=== PATIENT | female | born 1965 | race Two or more races ===

== ENCOUNTER 2024-12-10 17:08 | Emergency (ER) | payer MEDICAID, SELFPAY ==
--- NOTE | 2024-12-10 17:18 | EKG_ITS ---
[facility] Test Date: 2024-12-10 Pat Name: TRACEY ORTIZ Department: Room: - Gender: Female [employer] Architect: : [id number] Requested By: Yoseph Strong (DG) Order Number: [id number] Reading MD: Yoseph Strong ([employer]) Measurements Intervals [place] Rate: 83 P: 48 SC: 147 QRS: -6 QRSD: 101 T: -22 QT: 367 QTc: 431 Interpretive Statements SINUS RHYTHM MODERATE VOLTAGE CRITERIA FOR LVH, CONSIDER NORMAL VARIANT [MEETS CRITERIA IN ONE OF: R(aVL), S(V1), R(V5), R(V5/V6)+S(V1)] POSSIBLE SEPTAL MYOCARDIAL INFARCTION , OF INDETERMINATE AGE [30 ms Q WAVE IN V1/V2] Compared to ECG 10/01/2023 13:10:22 Myocardial infarct finding now present ST (T wave) deviation no longer present /store/S0/[id number].pdf
--- NOTE | 2024-12-10 17:19 | XR_ITS ---
Examination: CT brain head without contrast. 2-D sagittal coronal reconstructions Date and time of exam:December 10, 2024 1736 hrs. Indications: Headache dizziness weakness beginning 5 days ago CTDI: vol (mGy):51.1 DLP: (mGycm):949 Technique: Multiple CT axial sections of the brain have been obtained, 5 mm slice thickness. Contrast has not been administered. 2-D sagittal, coronal reconstructions have been obtained Low dose protocols were performed. One or more of the following dose reduction techniques were used; automated exposure control, adjustment of the mA and/or KV according to patient size, use of iterative reconstruction technique. Findings: No significant ventricular enlargement. Intra-axial or extra-axial hemorrhage density is not seen. No mass effect or midline shift Basal cisterns are not remarkable. Fourth ventricle is midline. Cranial vault intact. Impression: Negative for acute hemorrhage, mass effect or midline shift Advise clinical correlation follow-up accordingly
[2024-12-10 17:21] VITALS: BP 102/73; PULSE 79; RESP 18; TEMP 37.1; O2SAT 97
--- NOTE | 2024-12-10 17:21 | PD.EDRME ---
Rapid Medical Screening Exam RME Arrival date/time: 12/10/24 17:08 58-year-old female presents emergency department today complaints of dizziness and fatigue x 5 days Chief Complaint: Dizziness Time Seen by Provider: 12/10/24 17:18
[2024-12-10 17:46] LABS: Collection Type, Urine Clean Catch
[2024-12-10 18:00] LABS: Amphetamine/Methamp Scrn,U Negative (Negative); Barbiturate Screen,Urine Negative (Negative); Benzodiazepines Screen,Urine Negative (Negative); Benzoylecgonine Screen, Ur Negative (Negative); Fentanyl Screen,Urine Negative (Negative); Opiate Screen,Urine Negative (Negative); THC Screen,Urine Negative (Negative)
[2024-12-10 18:02] LABS: Basophils % (Auto) 1 % (0-2.5); Eosinophils # (Auto) 0.1 Thou/mm3 (0.0-0.5); Eosinophils % (Auto) 1 % (0-10); Hematocrit 40.1 % (36.0-46.0); Hemoglobin 13.6 g/dL (12.0-16.0); Immature Granulocytes % (Auto) 0 % (0-0); Immature Granulocytes Auto 0.02 Thou/mm3 (0.00-0.00); Lymphocytes # (Auto) 2.2 Thou/mm3 (1.0-4.8); Lymphocytes % (Auto) 31 % (10-50); Mean Corpuscular HGB Conc 33.9 g/dl (31.0-37.0); Mean Corpuscular Hemoglobin 31.1 pg (25.0-35.0); Mean Corpuscular Volume 92 fL (80-100); Monocytes # (Auto) 0.6 Thou/mm3 (0.0-0.8); Monocytes % (Auto) 8 % (0-12); Neutrophils # (Auto) 4.4 Thou/mm3 (1.8-7.7); Neutrophils % (Auto) 60 % (37-80); Nucleated Red Blood Cell % 0 /100 WBC (0); Platelet Count 287 Thou/mm3 (140-440); RDW Standard Deviation 43.5 fL (36.4-46.3); Red Blood Count 4.37 Miln/mm3 (4.00-5.20); White Blood Count 7.3 Thou/mm3 (3.6-11.0)
[2024-12-10 18:04] LABS: Bacteria,Urine 1+; Bilirubin,Urine Negative (Negative); Blood,Urine Negative (Negative); Clarity,Urine Clear (Clear/Hazy); Color,Urine Colorless (Lt Yel-Yel); Glucose, Urine Negative (Negative); Ketones,Urine Negative (Negative); Leukocyte Esterase,Urine Negative (Negative); Nitrite,Urine Negative (Negative); Protein,Urine Negative (Neg - Trace); RBC,Urine 1 /hpf (0-3); Specific Gravity,Urine 1.007 (1.001-1.035); Squamous Epithelial Cell,Urine < 1 /hpf (0-5); Urobilinogen,Urine Negative mg/dL (0.0-1.0); WBC,Urine 2 /hpf (0-5)
[2024-12-10 18:06] LABS: Sperm,Urine Present
[2024-12-10 18:17] LABS: Partial Thromboplastin Time 28.1 Seconds (22.0-36.0); Prothrombin Time 10.9 Seconds (9.0-12.2)
[2024-12-10 18:19] LABS: B-Type Natriuretic Peptide 31 pg/mL (0-100)
[2024-12-10 18:34] LABS: Alanine Aminotransferase 11 U/L (10-49); Albumin, Serum 4.9 gm/dL (3.5-5.0); Albumin/Globulin Ratio 1.5 (1.2-2.2); Alkaline Phosphatase 110 U/L (46-116); Anion Gap 7 (7-16); Aspartate Amino Transferase 27 U/L (0-34); BUN/Creatinine Ratio 13 Ratio (12-20); Bilirubin,Total 0.6 mg/dL (0.3-1.2); Blood Urea Nitrogen 18 mg/dL (9-23); Calcium 9.2 mg/dL (8.3-10.6); Calcium (Corrected) 9.2 mg/dL (8.5-10.1); Carbon Dioxide 29.8 mMol/L (20.0-31.0); Chloride 102 mMol/L (98-107); Creatinine (Component) 1.4 mg/dL (0.6-1.3); Free T4 (Free Thyroxine) 1.06 ng/dL (0.89-1.76); Globulin 3.2 gm/dL (2.3-3.5); Glucose 89 mg/dL (74-106); Magnesium 2.2 mg/dL (1.6-2.6); Osmolality,Calculated 278 (275-295); Potassium 4.2 mMol/L (3.4-5.1); Sodium 139 mMol/L (136-145); Thyroid Stimulating Hormone 3.64 uIU/mL (0.55-4.78); Total Protein 8.1 gm/dL (5.7-8.2); Troponin I < 0.020 ng/mL (0.0-0.045); eGFR 44 See Note
--- NOTE | 2024-12-10 19:49 | PD.EDDIZZY ---
ED Dizzyness RME/HPI General Chief Complaint: Dizziness Stated Complaint: DIZZY X5 DAYS Time Seen by Provider: 12/10/24 17:18 Arrival date/time: 12/10/24 17:08 RME / HPI RME / HPI Narrative: 58-year-old female patient came in for evaluation regarding dizziness. Onset of symptoms for the last 5 days as on and off dizziness with vertigo, described as everything spinning and generalized body weakness. Denies any headache denies any slurring of speech denies any weakness to upper or lower extremity. Patient denies any fever. Denies any neck pain. Denies any head trauma or injury or fall lately. No medication was taken prior to arrival. Related Data Home Medications ?Medication ?Instructions ?Recorded ?Confirmed lisinopril 20 mg tablet 20 mg PO QDAY #0 tabs 05/16/17 08/22/21 atorvastatin 20 mg tablet 20 mg PO QPM 08/22/21 08/22/21 carvedilol 12.5 mg tablet 12.5 mg PO BID 08/22/21 08/22/21 diphenhydramine HCl 25 mg capsule 25 - 50 mg PO HS PRN Sleep 08/22/21 08/22/21 (Diphenhist) ergocalciferol (vitamin D2) 1,250 50,000 unit PO QWEEK 08/22/21 08/22/21 mcg (50,000 unit) capsule (Vitamin D2) gabapentin 300 mg capsule 300 mg PO HS 08/22/21 08/22/21 meclizine 25 mg chewable tablet 25 mg PO Q8H PRN Dizziness 08/22/21 08/22/21 Previous Rx's ?Medication ?Instructions ?Recorded furosemide 40 mg tablet 40 mg PO QAM #14 tabs 12/14/19 albuterol sulfate 90 mcg/actuation 2 puff inhalation QID PRN 08/15/21 aerosol inhaler shortness of breath or wheezing #8.5 grams etodolac 400 mg tablet 400 mg PO BID PRN pain #30 tabs 06/15/22 tramadol 37.5 mg-acetaminophen 325 1 tab PO TID PRN pain #15 tabs 06/15/22 mg tablet (Ultracet) cefuroxime axetil 500 mg tablet 500 mg PO BID #14 tabs 10/01/23 scopolamine base 1 mg over 3 days 1 mg topical .Q3 days #10 ea 10/01/23 transdermal patch (Transderm-Scop) hydrocodone 5 mg-acetaminophen 325 1 tab PO BID PRN pain #6 tabs 01/09/24 mg tablet ibuprofen 600 mg tablet 600 mg PO Q6H #30 tabs 01/09/24 ibuprofen 600 mg tablet 600 mg PO TID PRN pain #30 tabs 01/11/24 ibuprofen 800 mg tablet 800 mg PO TID PRN pain #30 tabs 02/21/24 meclizine 50 mg tablet 50 mg PO BID PRN dizziness #30 tabs 12/10/24 Allergies Allergy/AdvReac Type Severity Reaction Status Date / Time No Known Allergies Allergy Verified 12/10/24 17:10 Review of Systems Review of Systems Narrative Review of Systems: Review of system reviewed and within normal limits except mentioned in HPI ED Exam Narrative Physical exam: VITAL SIGNS: Reviewed. GENERAL APPEARANCE: Alert and interactive, follows commands, no acute distress, HEAD AND FACE: Non-traumatic. ENT: PERRL, pink conjunctivitis, eyelid no trauma, Mucous membrane moist. NECK: Supple, nontender, no nuchal rigidity. CHEST: No tenderness, no crepitus, no paradoxical movement, no retractions. LUNGS: Clear, well ventilated, symmetric, no rales, no wheezing, no ronchi, no stridor, good breath sounds bilaterally. HEART: Regular rate, regular rhythm, no murmur, no gallops. ABDOMEN: Soft, positive bowel sounds, nondistended, no guarding, nontender, no rebound, no masses, RECTAL: Deferred. GENITAL: Deferred. NEUROLOGICAL: Gross motor function intact sensory function intact, Appropriate for age. MUSCULOSKELETAL: low back nontender, full range of motion. EXTREMITIES: Nontender, full range of motion. SKIN: Color pink, dry, no rash, no lacerations, no abrasions, no contusions. LYMPHATICS: Deferred. Course Quality Measures none Orders Category Date Time Status EKG (ED ONLY) *Do not use* NOW Care 12/10/24 17:[address] head/brain wo con Stat Exams 12/10/24 17:19 Completed EKG (ED Only) Stat Exams 12/10/24 17:18 Draft B-Type Natriuretic Peptide Stat Lab 12/10/24 17:53 Completed CBC Stat Lab 12/10/24 17:53 Completed Comprehensive Metabolic Panel Stat Lab 12/10/24 17:53 Completed Drug Screen,Urine Stat Lab 12/10/24 17:34 Completed Free T4 (Free Thyroxine) Stat Lab 12/10/24 17:53 Completed Magnesium Stat Lab 12/10/24 17:53 Completed Partial Thromboplastin Time Stat Lab 12/10/24 17:53 Completed Prothrombin Time with INR Stat Lab 12/10/24 17:53 Completed TSH [Thyroid Stimulating Hormone] Stat Lab 12/10/24 17:53 Completed Troponin I Stat Lab 12/10/24 17:53 Completed Urinalysis Stat Lab 12/10/24 17:33 Completed Meclizine HCl [Antivert] Med 12/10/24 19:46 Discontinued 50 mg PO X1 ONE Vital Signs Vital signs: Vital Signs Temperature 98.8 F 12/10/24 17:21 Pulse Rate 79 12/10/24 17:21 Respiratory Rate 18 12/10/24 17:21 Blood Pressure 102/73 12/10/24 17:21 Pulse Oximetry (%) 97 12/10/24 17:21 Oxygen Delivery Method Room Air 12/10/24 17:21 Dizziness MDM Narrative MDM Narrative:: 58-year-old female patient came in for evaluation regarding dizziness. Onset of symptoms for the last 5 days as on and off dizziness with vertigo, described as everything spinning and generalized body weakness. Denies any headache denies any slurring of speech denies any weakness to upper or lower extremity. Patient denies any fever. Denies any neck pain. Denies any head trauma or injury or fall lately. No medication was taken prior to arrival. Clinically I did not notice any nystagmus. Patient is ambulatory. Patient's workup today including CT scan of the head all came back normal. EKG showed normal sinus rhythm, ventricular rate of 53 bpm, no ST segment elevation or depression noted. Results discussed with the patient. Patient was given meclizine with significant progress symptoms Patient appears nontoxic and hemodynamically stable. Patient discharged home and instructed to follow-up with primary care provider in 24 to 48 hours. Instructed to return to the emergency department immediately if worsening of symptoms Patient data External records reviewed:: None Clinical information provided by:: patient Social determinants that could affect healthcare access:: none Patient has the following chronic illnesses:: History of congestive heart failure How is presenting disease/condition affected by chronic disease/condition?: uneffected by Evaluation data The following diagnostics were reviewed and interpreted by me:: lab results, radiology exam(s) and EKG tracing(s) Lab and/or radiology exams considered but not ordered:: None Interpretation Summary: See results in [facility] Medications / Prescriptions Medications or Prescriptions considered but not ordered:: None Medication administrations:: Medication Administration History Discontinued Medications Meclizine HCl (Meclizine Hcl 25 Mg Tablet) 50 mg PO X1 ONE Stop: 12/10/24 19:47 Meclizine Consultations Consultation(s) initiated? (list below): No Diagnosis Dizziness Differential Diagnosis: adverse reaction to drug, benign paroxysmal positional vertigo and cerebrovascular accident Most likely diagnosis given after review of the tests above:: Dizziness, vertigo Admission Indicated Admission indicated?: not indicated Admission Request Was there a request for admission?: No Disposition Plan Disposition Plan: Discharge Discharge Attestation Discharge Attestation: The patient was given an opportunity to ask questions and understood the discharge instructions. Discharge instructions specifically effects, indications for sooner follow up or return to the emergency department, and the expected course of current diagnosis. Patient condition: Stable Discharge Plan Plan Patient Disposition: HOME (Self Care) Disposition Comment: Stable Prescriptions/Referrals Prescriptions/Med Rec: New meclizine 50 mg tablet 50 mg PO BID PRN (Reason: dizziness) Qty: 30 0RF No Action lisinopril 20 MG tablet 20 mg PO QDAY Qty: 0 albuterol sulfate 90 mcg/actuation HFA aerosol inhaler 2 puff inhalation QID PRN (Reason: shortness of breath or wheezing) Qty: 8.5 0RF furosemide 40 mg tablet 40 mg PO QAM Qty: 14 0RF atorvastatin 20 mg tablet 20 mg PO QPM carvedilol 12.5 mg tablet 12.5 mg PO BID diphenhydramine HCl [Diphenhist] 25 mg capsule 25 - 50 mg PO HS PRN (Reason: Sleep) gabapentin 300 mg capsule 300 mg PO HS ergocalciferol (vitamin D2) [Vitamin D2] 1,250 mcg (50,000 unit) capsule 50,000 unit PO QWEEK meclizine 25 mg tablet,chewable 25 mg PO Q8H PRN (Reason: Dizziness) scopolamine base [Transderm-Scop] 1 mg over 3 days patch 3 day 1 mg topical .Q3 days Qty: 10 0RF cefuroxime axetil 500 mg tablet 500 mg PO BID Qty: 14 0RF hydrocodone-acetaminophen 5-325 mg tablet 1 tab PO BID MDD 10 PRN (Reason: pain) Qty: 6 0RF ibuprofen 600 mg tablet 600 mg PO Q6H Qty: 30 0RF ibuprofen 600 mg tablet 600 mg PO TID PRN (Reason: pain) Qty: 30 0RF ibuprofen 800 mg tablet 800 mg PO TID PRN (Reason: pain) Qty: 30 0RF tramadol-acetaminophen [Ultracet] 37.5-325 mg tablet 1 tab PO TID PRN (Reason: pain) Qty: 15 0RF etodolac 400 mg tablet 400 mg PO BID PRN (Reason: pain) Qty: 30 0RF Referrals: No Primary/Family,Physician [Primary Care Provider] - In 1 week Problem List Clinical Impression: Dizziness Patient/Caregiver Discharge Instructions Discharge Activity: activity as tolerated Education Materials: ED Dizziness, Uncertain Cause Additional Instructions: Thank you for the opportunity for serving you today. You are stable for discharged . You are advised to: Follow-up with your PCP in 1 to 2 days Return to ED for worsening of symptoms Increase oral fluids Take medication as prescribed Print Language: Cambodian Stand Alone Forms: Ronda Award Info., Patient Portal Info Letter LEIGH ANN/MOIRA Supervising Physician LEIGH ANN/MOIRA Supervising Physician: MD Abbie
[2024-12-10] MEDS: MECLIZINE HCL 25 MG TABLET 50 MG PO (19:52)
== END 2024-12-10 19:54 | disposition home or self-care (01) ==
PROVIDERS: Nurse Practitioner Primary Care; Emergency Provider Emergency Medicine
DX: R42 Dizziness and giddiness (principal)
CPT/HCPCS: 36415; 70450; 80053; 80307; 81001; 83735; 83880; 84439; 84443; 84484; 85025; 85610; 85730; 93005; 99284; A9270

== ENCOUNTER 2025-05-28 07:07 | Emergency (ER) | payer MEDICAID, SELFPAY ==
[2025-05-28 07:08] VITALS: BMI 30.4
[2025-05-28 07:14] VITALS: BP 159/92; PULSE 69; RESP 17; TEMP 36.4; O2SAT 100; BMI 29.2
--- NOTE | 2025-05-28 07:32 | XR_ITS ---
Examination: Shoulder,right, 3 views Technique: Shoulder AP internal rotation, AP external rotation, Y view shoulder, 3 views Exam date and time :May 28, 2025, 0734 hrs. Indications: Right shoulder pain one week no trauma Findings: No fracture or dislocation. No arthritic change. No soft tissue calcific tendinitis Impression: No fracture. No soft tissue calcific tendinitis
--- NOTE | 2025-05-28 07:36 | PD.EDUPEX ---
Upper Extremity Injury RME/HPI General Chief Complaint: Extremity Injury, Upper Stated Complaint: R SHOULDER PAIN X1 WEEK Time Seen by Provider: 05/28/25 07:13 Arrival date/time: 05/28/25 07:07 This is a 59-year-old female that comes into the emergency room with complaints of right shoulder pain. Patient denies trauma. Patient states the pain has been going on for the past week. Patient was seen by primary provider and an x-ray was ordered. Patient still has not had x-ray with primary provider and would like to have 1 done here today. Patient has more pain with range of motion but no pain to palpation. There is no deformity noted. Related Data Home Medications ?Medication ?Instructions ?Recorded ?Confirmed lisinopril 20 mg tablet 20 mg PO QDAY #0 tabs 05/16/17 08/22/21 atorvastatin 20 mg tablet 20 mg PO QPM 08/22/21 08/22/21 carvedilol 12.5 mg tablet 12.5 mg PO BID 08/22/21 08/22/21 diphenhydramine HCl 25 mg capsule 25 - 50 mg PO HS PRN Sleep 08/22/21 08/22/21 (Diphenhist) ergocalciferol (vitamin D2) 1,250 50,000 unit PO QWEEK 08/22/21 08/22/21 mcg (50,000 unit) capsule (Vitamin D2) gabapentin 300 mg capsule 300 mg PO HS 08/22/21 08/22/21 meclizine 25 mg chewable tablet 25 mg PO Q8H PRN Dizziness 08/22/21 08/22/21 Previous Rx's ?Medication ?Instructions ?Recorded furosemide 40 mg tablet 40 mg PO QAM #14 tabs 12/14/19 albuterol sulfate 90 mcg/actuation 2 puff inhalation QID PRN 08/15/21 aerosol inhaler shortness of breath or wheezing #8.5 grams etodolac 400 mg tablet 400 mg PO BID PRN pain #30 tabs 06/15/22 tramadol 37.5 mg-acetaminophen 325 1 tab PO TID PRN pain #15 tabs 06/15/22 mg tablet (Ultracet) cefuroxime axetil 500 mg tablet 500 mg PO BID #14 tabs 10/01/23 scopolamine base 1 mg over 3 days 1 mg topical .Q3 days #10 ea 10/01/23 transdermal patch (Transderm-Scop) hydrocodone 5 mg-acetaminophen 325 1 tab PO BID PRN pain #6 tabs 01/09/24 mg tablet ibuprofen 600 mg tablet 600 mg PO Q6H #30 tabs 01/09/24 ibuprofen 600 mg tablet 600 mg PO TID PRN pain #30 tabs 01/11/24 ibuprofen 800 mg tablet 800 mg PO TID PRN pain #30 tabs 02/21/24 meclizine 50 mg tablet 50 mg PO BID PRN dizziness #30 tabs 12/10/24 acetaminophen 500 mg tablet 1,000 mg (2 x 500 mg) PO Q6H #30 05/28/25 (Tylenol Extra Strength) tabs cyclobenzaprine 10 mg tablet 10 mg PO TID PRN muscle spasm #20 05/28/25 tabs Allergies Allergy/AdvReac Type Severity Reaction Status Date / Time No Known Allergies Allergy Verified 05/28/25 07:11 Review of Systems Review of Systems Systems Reviewed: All systems reviewed, normal except as documented Past Medical History Past Medical History NEUROLOGIC: Negative Neurological Disorders CARDIAC: Positive Hypercholesterolemia, Congestive Heart Failure, Edema and Hypertension; Negative Cardiac Disorders RESPIRATORY: Positive Asthma; Negative Chronic Obstructive Pulmonary Disease (COPD) GASTROINTESTINAL: Negative Gastrointestinal Disorders GENITOURINARY: Negative Genitourinary Disorders or Renal Disease REPRODUCTIVE: Negative Pelvic Inflammatory Disease MUSCULOSKELETAL: Positive Arthritis; Negative Musculoskeletal Disorders ENDOCRINE: Negative Endocrine Disorders, Diabetes Mellitus Type 1 or Diabetes Mellitus Type 2 HEMATOLOGIC: Negative Blood Disorders or Sickle Cell Disease OTHER HISTORY: Negative Autoimmune Disease, Blood Transfusions, Anesthesia Reactions, MRSA, VRSA, Vancomycin-Resistant Enterococci, Rubella (Sami Measles), Clostridium Difficile or Cancer Family History FAMILY HISTORY: Positive Family Cardiac Disorders; Negative Family Neurologic Problems Surgical History SURGICAL: Positive Pacemaker, Abdominal Surgery, Hysterectomy and Tubal Ligation; Negative Cardiac Surgery, Endocrine Surgery, Ear Surgery, Joint Replacement or Neurologic Surgery Social History SMOKING STATUS: Never smoker SECOND HAND EXPOSURE: No SUBSTANCE USE: does not use ED Exam Narrative Physical exam: VITAL SIGNS: Reviewed. GENERAL APPEARANCE: Alert and interactive, follows commands, no acute distress HEAD AND FACE: Non-traumatic. ENT: PERRL, conjuctiva pink and clear, eyelid no trauma, Mucous membrane moist. NECK: Supple, nontender, no nuchal rigidity. CHEST: No tenderness, no crepitus, no paradoxical movement, no retractions. LUNGS: breathing even and unlabored HEART: Regular rate, cap refill less than 2 seconds ABDOMEN: Soft, nondistended, no guarding, nontender, no rebound, no masses, NEUROLOGICAL: Gross motor function intact sensory function intact, Appropriate for age. MUSCULOSKELETAL: low back nontender, full range of motion. EXTREMITIES: No redness no swelling no skin breakdown on bilateral foot and leg. Distal neurovascular status intact bilateral foot. Pain with range of motion of shoulder mostly when lifting overhead she is able to do this though. Patient also has pain with shoulder abduction SKIN: Color pink, dry. Course Quality Measures none Orders Category Date Time Status XR shoulder RT min 2V Stat Exams 05/28/25 07:32 Completed Acetaminophen Tab [Tylenol ES Tab] Med 05/28/25 07:34 Discontinued 1,000 mg PO X1 ONE CYCLObenzaPRINE [Flexeril] Med 05/28/25 07:34 Discontinued 10 mg PO X1 ONE HYDROcodone*/APAP 5/325 [Kennard 5/325] Med 05/28/25 09:54 Discontinued 1 tab PO X1 ONE Ibuprofen Tab [Motrin Tab] Med 05/28/25 07:34 Discontinued 800 mg PO X1 ONE Ondansetron Odt [Zofran Odt] Med 05/28/25 09:54 Discontinued 4 mg PO X1 ONE Vital Signs Vital signs: Vital Signs Temperature 97.6 F 05/28/25 07:14 Pulse Rate 69 05/28/25 07:14 Respiratory Rate 17 05/28/25 07:14 Blood Pressure 159/92 H 05/28/25 07:14 Pulse Oximetry (%) 100 05/28/25 07:14 Oxygen Delivery Method Room Air 05/28/25 07:14 Extremity Injury MDM Narrative [facility] Narrative:: shoulder x ray: Findings: No fracture or dislocation. No arthritic change. No soft tissue calcific tendinitis Impression: No fracture. No soft tissue calcific tendinitis I spoke to patient at length. I will order Tylenol ibuprofen and Flexeril. Patient states that she had issues with her kidneys in the past but was told that her kidney functions back to normal. I likely will not send her home with anti-inflammatories at this time. I will have her take Tylenol and Flexeril at home. Patient told to follow-up with primary provider in 1 to 2 days. I explained to her that x-rays are good for broken bones and to see arthritis that they are not going to see rotator cuff tears or ligament injuries. I explained to patient that she may need an MRI both by her primary provider. Patient verbalized understanding. [place]on dictation: Although this document has been carefully reviewed, there may still be some phonetic and other typographical errors. These errors are purely grammatical due to imperfections in the software program and should not be construed in any way to compromise the substance of the patient's medical care during this visit. Patient data External records reviewed:: [facility] previous records Clinical information provided by:: patient Social determinants that could affect healthcare access:: none Patient has the following chronic illnesses:: none How is presenting disease/condition affected by chronic disease/condition?: no chronic disease Evaluation data The following diagnostics were reviewed and interpreted by me:: radiology exam(s) Lab and/or radiology exams considered but not ordered:: none Interpretation Summary: see note Medications / Prescriptions Medications or Prescriptions considered but not ordered:: none Medication administrations:: Medication Administration History Discontinued Medications Acetaminophen (Acetaminophen 500 Mg Tablet) 1,000 mg PO X1 ONE Stop: 05/28/25 07:35 Last Admin: 05/28/25 07:48 Dose: 1,000 mg Documented By: GM Hydrocodone Bitart/Acetaminophen (Hydrocodone/Apap 5/325 Tablet) 1 tab PO X1 ONE Stop: 05/28/25 09:55 Last Admin: 05/28/25 10:00 Dose: 1 tab Documented By: OA Cyclobenzaprine HCl (Cyclobenzaprine 5 Mg Tablet) 10 mg PO X1 ONE Stop: 05/28/25 07:35 Last Admin: 05/28/25 07:48 Dose: 10 mg Documented By: GM Ibuprofen (Ibuprofen Tab 400 Mg Tablet) 800 mg PO X1 ONE Stop: 05/28/25 07:35 Last Admin: 05/28/25 07:48 Dose: 800 mg Documented By: GM Ondansetron HCl (Ondansetron Odt 4 Mg Tabrap) 4 mg PO X1 ONE; Protocol Stop: 05/28/25 09:55 Last Admin: 05/28/25 10:00 Dose: 4 mg Documented By: OA see mar Consultations Consultation(s) initiated? (list below): No Diagnosis Upper Extremity Injury Differential Diagnosis: dislocation of shoulder and other (contusion acute shoulder pain) Most likely diagnosis given after review of the tests above:: acute shoulder pain Admission Indicated Admission indicated?: not indicated Admission Request Was there a request for admission?: No Disposition Plan Disposition Plan: Discharge Discharge Attestation Discharge Attestation: The patient and all family members were given an opportunity to ask questions and understood the discharge instructions. Discharge instructions specifically effects, indications for sooner follow up or return to the emergency department, and the expected course of current diagnosis. Patient condition: Stable Discharge Plan Plan Patient Disposition: HOME (Self Care) Patient condition on transfer: Stable Prescriptions/Referrals Prescriptions/Med Rec: New cyclobenzaprine 10 mg tablet 10 mg PO TID PRN (Reason: muscle spasm) Qty: 20 0RF acetaminophen [Tylenol Extra Strength] 500 mg tablet 1,000 mg PO Q6H Qty: 30 0RF No Action lisinopril 20 MG tablet 20 mg PO QDAY Qty: 0 albuterol sulfate 90 mcg/actuation HFA aerosol inhaler 2 puff inhalation QID PRN (Reason: shortness of breath or wheezing) Qty: 8.5 0RF furosemide 40 mg tablet 40 mg PO QAM Qty: 14 0RF atorvastatin 20 mg tablet 20 mg PO QPM carvedilol 12.5 mg tablet 12.5 mg PO BID diphenhydramine HCl [Diphenhist] 25 mg capsule 25 - 50 mg PO HS PRN (Reason: Sleep) gabapentin 300 mg capsule 300 mg PO HS ergocalciferol (vitamin D2) [Vitamin D2] 1,250 mcg (50,000 unit) capsule 50,000 unit PO QWEEK meclizine 25 mg tablet,chewable 25 mg PO Q8H PRN (Reason: Dizziness) scopolamine base [Transderm-Scop] 1 mg over 3 days patch 3 day 1 mg topical .Q3 days Qty: 10 0RF cefuroxime axetil 500 mg tablet 500 mg PO BID Qty: 14 0RF hydrocodone-acetaminophen 5-325 mg tablet 1 tab PO BID MDD 10 PRN (Reason: pain) Qty: 6 0RF ibuprofen 600 mg tablet 600 mg PO Q6H Qty: 30 0RF ibuprofen 600 mg tablet 600 mg PO TID PRN (Reason: pain) Qty: 30 0RF ibuprofen 800 mg tablet 800 mg PO TID PRN (Reason: pain) Qty: 30 0RF tramadol-acetaminophen [Ultracet] 37.5-325 mg tablet 1 tab PO TID PRN (Reason: pain) Qty: 15 0RF etodolac 400 mg tablet 400 mg PO BID PRN (Reason: pain) Qty: 30 0RF meclizine 50 mg tablet 50 mg PO BID PRN (Reason: dizziness) Qty: 30 0RF Referrals: No Primary/Family,Physician [Primary Care Provider] - In 1 week Problem List Clinical Impression: Acute shoulder pain Patient/Caregiver Discharge Instructions Discharge Activity: activity as tolerated Education Materials: ED RICE Print Language: Croatian Stand Alone Forms: Ronda Award Info., Patient Portal Info Letter PA/CITRIX LEAD Supervising Physician PA/CITRIX LEAD Supervising Physician: jeff
[2025-05-28] MEDS: ACETAMINOPHEN 500 MG TABLET 1000 MG PO (07:48)
[2025-05-28] MEDS: IBUPROFEN TAB 400 MG TABLET 800 MG PO (07:48)
[2025-05-28] MEDS: HYDROcodone/APAP 5/325 TABLET 1 TAB PO (10:00)
[2025-05-28] MEDS: ONDANSETRON ODT 4 MG TABRAP PO (10:00)
== END 2025-05-28 10:07 | disposition home or self-care (01) ==
PROVIDERS: Emergency Provider Emergency Medicine
DX: M25.511 Pain in right shoulder (principal); I11.0 Hypertensive heart disease with heart failure; I50.9 Heart failure, unspecified; E78.00 Pure hypercholesterolemia, unspecified; Z95.0 Presence of cardiac pacemaker; J45.909 Unspecified asthma, uncomplicated
CPT/HCPCS: 73030; 99283; Q0162; A9270